=== PATIENT | male | born 1990 | race Two or more races ===

== ENCOUNTER 2022-08-31 10:54 | Emergency (ER) | payer BC, OTHER ==
[~2022-08-31] VITALS: Ht 182.9 cm; Wt 88.5 kg
[2022-08-31] MEDS ORDERED: IBUPROFEN 600 MG TAB PO ONE (14:30)
[2022-08-31 15:15] VITALS: BP 109/73
== END 2022-08-31 15:42 | disposition home or self-care (01) ==
LOC: ER 10:54
DX: S92.355A Nondisplaced fracture of fifth metatarsal bone, left foot, initial encounter for closed fracture (principal); X58.XXXA Exposure to other specified factors, initial encounter; Y93.89 Activity, other specified; Y92.89 Other specified places as the place of occurrence of the external cause; Y99.8 Other external cause status
CPT/HCPCS: 29125; 29515; 73620